=== PATIENT | female | born 1985 ===

== ENCOUNTER 2020-07-08 15:24 | Emergency (ER) | payer SELFPAY ==
[~2020-07-08] VITALS: Ht 154.9 cm; Wt 77.3 kg
[2020-07-08 15:26] VITALS: Ht 154.9 cm; Wt 77.3 kg
[2020-07-08] MEDS ORDERED: LITHIUM CARBON300 MG PO (15:27)
[2020-07-08] MEDS ORDERED: LITHOBID 300 M300 MG PO (15:27)
[2020-07-08] MEDS ORDERED: ZYPREXA5 MG PO (15:28)
[2020-07-08 16:03] LABS: BASOPHILS 0.3 % (0-2); EOSINOPHILS 2.3 % (0-7); HEMATOCRIT 41.5 % (36.0-48.0); HEMOGLOBIN 14.4 g/dL (12-16); IMMATURE GRANULOCYTES 0.4 % (0-5); LYMPHOCYTES 27.5 % (15-50); MCH 29.9 pg (26.0-34.0); MCHC 34.7 g/dL (31.0-37.0); MCV 86.1 fL (80.0-100.0); MEAN PLATELET VOLUME 9.4 fL (7.4-10.4); MONOCYTES 5.4 % (2-11); NEUTROPHILS 64.1 % (40-80); PLATELET COUNT 379 10x3/uL (130-400); RBC 4.82 10x6/uL (4.00-5.40); WBC 11.9 10x3/uL (4.8-10.8)
[2020-07-08 16:32] LABS: SALICYLATES 0.5 mg/dL (2.8-20.0)
[2020-07-08 16:33] LABS: BILIRUBIN NEGATIVE (NEGATIVE); GLUCOSE NEGATIVE (NEGATIVE); HCG URINE NEGATIVE (NEGATIVE); KETONE MODERATE mg/dL (NEGATIVE); NITRITE NEGATIVE (NEGATIVE); UROBILINOGEN NORMAL (NORMAL)
[2020-07-08 16:40] LABS: LITHIUM 0.07 mmol/L (0.60-1.20)
[2020-07-08 16:46] LABS: UDS - AMPHET POSITIVE QUAL (NEGATIVE); UDS - BARB NEGATIVE QUAL (NEGATIVE); UDS - BENZO NEGATIVE QUAL (NEGATIVE); UDS - COCAINE NEGATIVE QUAL (NEGATIVE); UDS - OPIATE NEGATIVE QUAL (NEGATIVE); UDS - PCP NEGATIVE QUAL (NEGATIVE); UDS - THC NEGATIVE QUAL (NEGATIVE)
[2020-07-08 17:37] LABS: GLUCOSE 98 mg/dL (74-106); MAGNESIUM - SERUM 2.2 mg/dL (1.8-2.4); UREA NITROGEN 14 mg/dL (7-18)
[2020-07-08 17:38] LABS: ALKALINE PHOSPHATASE 100 U/L (30-120); ALT (SGPT) 73 U/L (10-68); BILIRUBIN - TOTAL 0.68 mg/dL (0.2-1.3); CALC OSMOLALITY 283 mosm/kg (275-300); CALCIUM 8.9 mg/dL (8.5-10.1); CARBON DIOXIDE 22.8 mmol/L (21.0-32.0); CHLORIDE - SERUM 106 mmol/L (98-107); POTASSIUM - SERUM 3.5 mmol/L (3.5-5.1); SODIUM 142 mmol/L (136-145); eGFR NON AFRICAN AMERICAN 68 mL/min (90-120)
[2020-07-08 17:39] LABS: ALBUMIN 3.7 g/dL (3.4-5.0); CREATINE KINASE 656 UL (21-215); PROTEIN - SERUM 6.9 g/dL (6.4-8.2)
[2020-07-08 17:53] LABS: CKMB 6.6 U/L (0.0-3.6)
[2020-07-08 23:18] VITALS: BP 147/78
== END 2020-07-08 22:55 | disposition home or self-care (01) ==
LOC: D.ER 15:24
PROVIDERS: Family Medicine
DX: F15.10 Other stimulant abuse, uncomplicated (principal); E86.0 Dehydration; R51 Headache; R79.89 Other specified abnormal findings of blood chemistry